=== PATIENT | female | born 1990 | race Caucasian/White ===

== ENCOUNTER 2021-11-02 14:08 | Emergency (ER) | payer OTHER ==
[~2021-11-02] VITALS: Ht 157.5 cm; Wt 68.0 kg
[2021-11-02] MEDS ORDERED: ACETAMINOPHEN EXTRA STRENGTH 500 MG TAB PO ONE (14:25)
[2021-11-02 14:32] VITALS: BP 126/85
[2021-11-02] MEDS ORDERED: IBUP-1842 PO (19:20)
[2021-11-02 19:31] VITALS: BP 120/70
[2021-11-03] MEDS ORDERED: ACET-10509 PO (05:45)
== END 2021-11-02 19:30 | disposition home or self-care (01) ==
LOC: MED 14:08
DX: S01.21XA Laceration without foreign body of nose, initial encounter (principal); M54.2 Cervicalgia; Z79.1 Long term (current) use of non-steroidal anti-inflammatories (NSAID); Y08.89XA Assault by other specified means, initial encounter; Y93.89 Activity, other specified; Y92.89 Other specified places as the place of occurrence of the external cause; Y99.8 Other external cause status
CPT/HCPCS: 12011; 36415; 70450; 70486; 72125; 73140; 81002; 81025; 84702; 99285; Q0092

== ENCOUNTER 2021-11-03 03:04 | Emergency (ER) | payer OTHER ==
[~2021-11-03] VITALS: Ht 157.5 cm; Wt 68.0 kg
[~2021-11-03 03:04] MED LIST: IBUP-1842 PO
[2021-11-03 03:14] VITALS: BP 117/64
--- NOTE | 2021-11-03 03:18 | NUR ---
Patient waited in lobby.
--- NOTE | 2021-11-03 05:27 | NUR ---
Patient taken to chair C.
--- NOTE | 2021-11-03 05:38 | NUR ---
Dr. Mai examining patient.
[2021-11-03] MEDS ORDERED: ACETAMINOPHEN EXTRA STRENGTH 500 MG TAB PO ONE (05:45)
[2021-11-03] MEDS ORDERED: ACET-10509 PO (05:45)
[2021-11-03 06:04] VITALS: BP 119/71
== END 2021-11-03 06:04 | disposition home or self-care (01) ==
LOC: MED 03:04
DX: S06.0X0A Concussion without loss of consciousness, initial encounter (principal); Z79.899 Other long term (current) drug therapy; Y04.2XXA Assault by strike against or bumped into by another person, initial encounter; Y93.89 Activity, other specified; Y92.89 Other specified places as the place of occurrence of the external cause; Y99.8 Other external cause status
CPT/HCPCS: 99282

== ENCOUNTER 2021-11-03 09:22 | Emergency (ER) | payer OTHER ==
[~2021-11-03] VITALS: Ht 157.5 cm; Wt 61.2 kg
[~2021-11-03 09:22] MED LIST changes: +ACET-10509 PO
[2021-11-03 09:42] VITALS: BP 100/70
--- NOTE | 2021-11-03 09:53 | NUR ---
PT AMBULATED TO BATHROOM
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
[2021-11-03] MEDS ORDERED: cefTRIAXone 500 MG VIAL IM ONE (10:55)
[2021-11-03] MEDS ORDERED: AZITHROMYCIN 250 MG TAB PO ONE ×2 (10:55→11:05)
[2021-11-03] MEDS ORDERED: metroNIDAZOLE 500 MG TAB PO ONE (10:55)
--- NOTE | 2021-11-03 11:21 | NUR ---
pt unable to urinate at this time, left water at bedside,
--- NOTE | 2021-11-03 12:48 | NUR ---
Female Die Operator accompanied female patient for Pelvic Exam and Rectal Exam.
[2021-11-03 13:14] LABS: APPEARANCE,URINE SL CLOUDY (CLEAR); BILIRUBIN,URINE NEGATIVE (NEGATIVE); BLOOD, URINE 3+ (NEGATIVE); COLOR,URINE AMBER (YELLOW); LEUKOCYTE ESTERASE ,URINE TRACE (NEGATIVE); NITRITE, URINE NEGATIVE (NEGATIVE); UGLUCOSE NEGATIVE (NEGATIVE)
--- NOTE | 2021-11-03 13:21 | NUR ---
Patient discharged with v/s stable. Written and verbal after care instructions given and explained. Patient verbalized understanding. Ambulatory with steady gait. All questions addressed prior to discharge. Advised to follow up with PMD.
[2021-11-03 13:22] VITALS: BP 100/70
[2021-11-03 13:33] LABS: OTHER CASTS, URINE None Seen /LPF (None Seen); RBC,URINE 11-20 (MOD) /HPF (0-5); WBC,URINE 0-5 /HPF (0-5)
== END 2021-11-03 13:22 | disposition home or self-care (01) ==
LOC: MED 09:22
DX: R10.2 Pelvic and perineal pain (principal); Z11.3 Encounter for screening for infections with a predominantly sexual mode of transmission; F32.9 Major depressive disorder, single episode, unspecified; F90.9 Attention-deficit hyperactivity disorder, unspecified type; Z79.899 Other long term (current) drug therapy; Z79.1 Long term (current) use of non-steroidal anti-inflammatories (NSAID)
CPT/HCPCS: 81001; 81025; 87110; 87205; 87210; 87299; 96372; 99284; J0696

== ENCOUNTER 2021-11-04 21:43 | Emergency (ER) | payer OTHER ==
--- NOTE | 2021-11-04 21:55 | NUR ---
Called first time, no show in lobby or out side.
--- NOTE | 2021-11-04 22:08 | NUR ---
Called second time- no show in lobby or outside.
--- NOTE | 2021-11-04 22:20 | NUR ---
PATIENT LEFT WITHOUT BEING SEEN BY DR. Mai. NO FURTHER CARE PROVIDED FOR PATIENT.
== END 2021-11-04 22:20 | disposition left against medical advice (07) ==
LOC: MED 21:43
DX: Z53.21 Procedure and treatment not carried out due to patient leaving prior to being seen by health care provider (principal)